=== PATIENT | male | born 1940 | race Hispanic/Latino ===

== ENCOUNTER → 2018-12-03 | Outpatient (CLI) | payer MEDICARE | END | disposition home or self-care (01) | LOC: RAH 12:10 → EDUNIT# 13:00 | PROVIDERS: ATTEND Internal Medicine | DX: I77.9 Disorder of arteries and arterioles, unspecified (principal); R42 Dizziness and giddiness | CPT/HCPCS: 93880 ==

== ENCOUNTER → 2018-12-03 | Outpatient (CLI) | payer OTHER, SELFPAY | END | disposition home or self-care (01) | LOC: OIH 14:37 | PROVIDERS: ATTEND Internal Medicine | DX: Z13.6 Encounter for screening for cardiovascular disorders (principal) | CPT/HCPCS: 75571 ==

== ENCOUNTER 2022-12-24 17:25 | Emergency (ER) | payer MEDICARE ==
[~2022-12-24] VITALS: Ht 170.2 cm; Wt 96.2 kg
[2022-12-24 18:36] LABS: BASOPHILS % (AUTO) 0.4 % (0.0-5.0); EOSINOPHILS % (AUTO) 0.2 % (0.0-8.0); HEMATOCRIT 37.8 % (42-54); LYMPHOCYTES % (AUTO) 13.4 % (21.0-51.0); MEAN CORPUSCULAR HEMOGLOBIN 28.4 pg (27.0-33.0); MEAN CORPUSCULAR HGB CONC 32.8 g/dL (32.0-36.0); MEAN CORPUSCULAR VOLUME 86.5 fL (79-99); MONOCYTES % (AUTO) 11.8 % (3.0-13.0); NEUTROPHILS % (AUTO) 73.7 % (40.0-77.0); PLATELET COUNT (AUTO) 209 K/uL (130-400); RED BLOOD CELL COUNT(AUTO) 4.37 MIL/uL (4.50-6.20); RED CELL DISTRIBUTION WIDTH 13.7 % (11.0-15.5); WHITE BLOOD COUNT (AUTO) 8.6 K/uL (4.8-10.8)
[2022-12-24 18:48] LABS: CREATININE 1.3 mg/dL (0.5-1.5); INR 0.93 (0.85-1.15); POTASSIUM 4.2 mmol/L (3.5-5.1); PROTHROMBIN TIME 10.7 SEC (9.6-11.6)
[2022-12-24 18:58] LABS: ALBUMIN 3.6 g/dL (3.5-5.0); TOTAL PROTEIN, SERUM 7.1 g/dL (6.0-8.3)
[2022-12-24] MEDS ORDERED: NIRM1TAB5 PO (19:10)
[2022-12-24 19:31] VITALS: BP 114/66; PULSE 94; RESP 17; O2SAT 96
== END 2022-12-24 20:02 | disposition home or self-care (01) ==
LOC: EDH 17:25
DX: U07.1 COVID-19 (principal); R41.82 Altered mental status, unspecified; E11.9 Type 2 diabetes mellitus without complications; E78.00 Pure hypercholesterolemia, unspecified; I10 Essential (primary) hypertension; Z88.0 Allergy status to penicillin
CPT/HCPCS: 99284; 70450; 87635; 84484; 80053; 85025; 85610; 87804 ×2; 82948; 36415; 93005; C9803